=== PATIENT | male | born 1975 | race Caucasian/White ===

== ENCOUNTER → 2020-11-13 | Outpatient (CLI) | payer OTHER ==
[2020-11-14 15:16] LABS: ABSOLUTE RETIC # 86 10e9/uL (24-90)
[2020-11-14 15:18] LABS: RETICULOCYTE % 1.61 % (0.50-2.40)
[2020-11-14 15:30] LABS: LYMPHOCYTES % (MANUAL) 14 %; MONOCYTES % (MANUAL) 11 %; NEUTROPHILS % (MANUAL) 75 %; RBC MORPH NORMAL
== END ==
LOC: LABNPT 14:00
PROVIDERS: ATTEND Family Medicine
DX: Z01.89 Encounter for other specified special examinations (principal)
CPT/HCPCS: 85007; 85045; 85055